=== PATIENT | female | born 1955 | race African-American/Black ===

== ENCOUNTER 2020-12-21 08:31 | Inpatient (IN) | payer OTHER, MEDICARE ==
[~2020-12-21] VITALS: Ht 172.7 cm; Wt 86.6 kg
[2020-12-21 08:57] LABS: BASOPHILS % 0.3 % (0.0-2.0); EOSINOPHILS % 1.3 % (0.0-5.0); LYMPHOCYTES % 47.6 % (20.0-50.0); MEAN CORPUSCULAR HEMOGLOBIN 24.2 pg (28.0-32.0); MEAN CORPUSCULAR VOLUME 79.3 fL (81.0-99.0); MEAN PLATELET VOLUME 8.6 fl (7.4-10.4); MONOCYTES % 4.1 % (2.0-8.0); NEUTROPHILS % 46.7 % (40.0-76.0); PLATELET 303 x1000/uL (130-400); RED BLOOD CELL COUNT 4.54 mill/uL (4.2-5.4); RED CELL DISTRIBUTION WIDTH 17.5 % (11.6-14.6)
[2020-12-21] MEDS ORDERED: DILTIAZEM HCL 125 MG in DEXT 5% WATER 100 ML IV ONE ×2 (09:00→09:15)
[2020-12-21] MEDS ORDERED: DILTIAZEM HCL 5MG/ML 5ML VIAL IV ONE (09:00)
[2020-12-21 09:14] LABS: CHLORIDE 108 mEq/L (98-107)
[2020-12-21 10:08] LABS: BG BASE EXCESS -5.5 mmol/L (-2.0-2.0); BG CARBOXYHEMOGLOBIN 0.1 % (0.5-1.5); BG DEOXYHEMOGLOBIN 0.2 % (0.0-5.0); BG FRACTION INSPIRED OXYGEN 100; BG HCO3 ACT 21.7 mmol/L (22.0-26.0); BG METHEMOGLOBIN 0.4 % (0.0-1.5); BG OXYGEN SATURATION 99.8 % (92.0-98.5); BG OXYHEMOGLOBIN 99.3 % (94.0-97.0); BG PCO2 50.1 mmHg (35.0-45.0); BG PH 7.255 (7.350-7.450); BG PO2 276.7 mmHg (75.0-100.0); BG SAMPLE SITE RIGHT BRACHIAL; BG TOTAL HEMOGLOBIN 11.6 g/dL (12.0-18.0); BG VENT MODE MASK - BIPAP
[2020-12-21] MEDS ORDERED: CEFTRIAXONE 1 G PREMIX 50 ML IV ONE (10:15)
[2020-12-21 11:07] LABS: INR 1.1; PROTHROMBIN TIME 11.4 sec (9.6-11.0)
[2020-12-21] MEDS ORDERED: AMIODARONE HCL 50MG/ML 3ML VIAL IV ONE (11:15)
[2020-12-21] MEDS ORDERED: MAGNESIUM/ALUMINUM HYDROXIDE/SIMETHICONE 30ML UDC PO PRN (12:45)
[2020-12-21] MEDS ORDERED: ACETAMINOPHEN 325MG TABLET PO PRN ×2 (12:45)
[2020-12-21] MEDS ORDERED: DOCUSATE SODIUM 100MG CAPSULE PO PRN (12:45)
[2020-12-21] MEDS ORDERED: ONDANSETRON HCL 4MG/2ML INJ IV PRN (12:45)
[2020-12-21] MEDS ORDERED: NOREPINEPHRINE 8 MG in DEXT 5% WATER 242 ML IV PRN (12:45)
[2020-12-21] MEDS ORDERED: NITROGLYCERIN 0.4MG TABLET SL SL PRN (12:45)
[2020-12-21] MEDS ORDERED: TRAMADOL 50MG TABLET PO PRN (12:45)
[2020-12-21] MEDS ORDERED: ZOLPIDEM TARTRATE 5MG TABLET PO PRN (12:45)
[2020-12-21] MEDS ORDERED: AZITHROMYCIN 500 MG in DEXT 5% WATER 250 ML IV SCH (12:45)
[2020-12-21] MEDS ORDERED: KETOROLAC 15MG/ML VIAL IV PRN (12:45)
[2020-12-21] MEDS ORDERED: GUAIFENESIN 200MG/10ML SUGAR FREE UDC PO PRN (12:45)
[2020-12-21] MEDS ORDERED: ALBUTEROL 6.7GM HFA INHALER ORI PRN (12:45)
[2020-12-21] MEDS: BLOOD SUGAR DIAGNOSTIC STRIP TEST SCH ×3 (13:00→23:30)
[2020-12-21] MEDS ORDERED: DEXTROSE 50% WATER 50ML SYRINGE IV PRN (13:00)
[2020-12-21] MEDS ORDERED: NOREPINEPHRINE 8 MG in DEXTROSE 5% WATER 250 ML IV PRN (13:15)
[2020-12-21] MEDS: INSULIN LISPRO 100 UNITS/ML SUBCUT SCH ×2 (13:20→18:53)
[2020-12-21] MEDS ORDERED: ENOXAPARIN 40MG/0.4ML SYR SUBCUT SCH (13:30)
[2020-12-21] MEDS: PIPERACILLIN/TAZ 3.375G PREMIX 50 ML IV SCH ×2 (13:57→20:00)
[2020-12-21] MEDS: METHYLPREDNISOLONE SOD SUCC 125 MG/2 ML VIAL IV SCH ×2 (13:57→22:00)
[2020-12-21] MEDS: FAMOTIDINE 20MG TABLET PO SCH (13:57)
[2020-12-21] MEDS: GUAIFENESIN/DM 600MG/30MG ER TAB 12HR PO SCH ×2 (13:57→23:20)
[2020-12-21] MEDS ORDERED: VANCOMYCIN 1 G PREMIX 200 ML IV SCH (14:00)
[2020-12-21] MEDS ORDERED: KCL 20MEQ/100ML PREMIX 100 ML IV ONE (14:00)
[2020-12-21 14:13] LABS: FOLIC ACID (FOLATE) SERUM 19.7 ng/mL (>5.38)
[2020-12-21 14:56] LABS: CREATINE KINASE MB FRACTION 13.8 ng/mL (0.5-3.6)
[2020-12-21] MEDS ORDERED: ALBUTEROL 6.7GM HFA INHALER ORI SCH (15:00)
[2020-12-21] MEDS: DILTIAZEM HCL 60MG TABLET PO SCH ×2 (18:00→23:30)
[2020-12-21] MEDS ORDERED: ENOXAPARIN 60MG/0.6ML SYR SUBCUT SCH (21:00)
[2020-12-21] MEDS: ASCORBIC ACID 500 MG TABLET PO SCH (21:00)
[2020-12-21] MEDS: IPRATROPIUM/ALBUTEROL 0.5-3(2.5)MG/3ML NEB HHN SCH (22:02)
[2020-12-22] VITALS (30 sets, daily range): BP systolic 80–140; BP diastolic 53–88
[2020-12-22 00:24] LABS: CREATINE KINASE MB FRACTION 26.1 ng/mL (0.5-3.6)
[2020-12-22] MEDS ORDERED: MIDAZOLAM HCL 5 MG/5 ML VIAL IV ONE (00:30)
[2020-12-22] MEDS ORDERED: MIDAZOLAM 100MG/100ML PMX 100 ML IV PRN (00:30)
[2020-12-22] MEDS ORDERED: FENTANYL CITRATE/PF 1,000 MCG in SODIUM CHLORIDE 0.9% 80 ML IV PRN (00:30)
[2020-12-22] MEDS ORDERED: MIDAZOLAM HCL 100 MG in SODIUM CHLORIDE 0.9% 100 ML IV PRN (00:45)
[2020-12-22] MEDS ORDERED: MIDAZOLAM HCL 2 MG/2 ML VIAL IV NR (00:45)
[2020-12-22] MEDS: PIPERACILLIN/TAZ 3.375G PREMIX 50 ML IV SCH (02:00)
[2020-12-22] MEDS: DILTIAZEM HCL 60MG TABLET PO SCH ×2 (06:00→12:00)
[2020-12-22 06:08] LABS: BASOPHILS % 0.4 % (0.0-2.0); HEMATOCRIT. 37.4 % (36.0-48.0); HEMOGLOBIN. 11.3 g/dL (12.0-16.0); LYMPHOCYTES % 20.1 % (20.0-50.0); MEAN CORPUSCULAR HEMOGLOBIN 24.1 pg (28.0-32.0); MEAN CORPUSCULAR VOLUME 79.4 fL (81.0-99.0); MEAN PLATELET VOLUME 8.4 fl (7.4-10.4); NEUTROPHILS % 75.5 % (40.0-76.0); PLATELET 268 x1000/uL (130-400); RED CELL DISTRIBUTION WIDTH 17.6 % (11.6-14.6)
[2020-12-22 06:17] LABS: CHLORIDE 104 mEq/L (98-107)
[2020-12-22 06:28] LABS: PHOSPHORUS 6.7 mg/dL (2.5-4.9)
[2020-12-22] MEDS: BLOOD SUGAR DIAGNOSTIC STRIP TEST SCH ×5 (06:30→21:12)
[2020-12-22] MEDS: METHYLPREDNISOLONE SOD SUCC 125 MG/2 ML VIAL IV SCH ×3 (06:48→21:11)
[2020-12-22] MEDS: INSULIN LISPRO 100 UNITS/ML SUBCUT SCH ×6 (07:00→21:00)
[2020-12-22] MEDS ORDERED: PIPERACILLIN/TAZOBACTAM 2.25 G in DEXTROSE 5% WATER 50 ML IV SCH (08:00)
[2020-12-22] MEDS ORDERED: ASPIRIN 325MG EC TABLET PO SCH (09:00)
[2020-12-22] MEDS ORDERED: CEFTRIAXONE 1 G PREMIX 50 ML IV SCH (09:00)
[2020-12-22 10:22] LABS: BG BASE EXCESS -8.5 mmol/L (-2.0-2.0); BG CARBOXYHEMOGLOBIN 0.3 % (0.5-1.5); BG DEOXYHEMOGLOBIN 0.7 % (0.0-5.0); BG HCO3 ACT 18.9 mmol/L (22.0-26.0); BG METHEMOGLOBIN 0.4 % (0.0-1.5); BG OXYGEN SATURATION 99.3 % (92.0-98.5); BG OXYHEMOGLOBIN 98.6 % (94.0-97.0); BG PCO2 46.4 mmHg (35.0-45.0); BG PH 7.228 (7.350-7.450); BG PO2 194.5 mmHg (75.0-100.0); BG TOTAL HEMOGLOBIN 12.3 g/dL (12.0-18.0); BG VENT MODE VENT - AC
[2020-12-22] MEDS: CHOLECALCIFEROL (D3) 1000 UNIT TABLET PO SCH (10:30)
[2020-12-22] MEDS: ZINC SULFATE 220 MG ( 50 ) CAPSULE PO SCH (10:30)
[2020-12-22] MEDS: FAMOTIDINE 20MG TABLET PO SCH (10:30)
[2020-12-22] MEDS: ASCORBIC ACID 500 MG TABLET PO SCH ×2 (10:30→21:12)
[2020-12-22] MEDS: GUAIFENESIN/DM 600MG/30MG ER TAB 12HR PO SCH ×2 (10:30→21:12)
[2020-12-22] MEDS ORDERED: VANCOMYCIN 750 MG PREMIX 150 ML IV NR (13:30)
[2020-12-22] MEDS: PIPERACILLIN/TAZOBACTAM 2.25 G in DEXTROSE 5% WATER 50 ML IV SCH ×2 (13:38→21:12)
[2020-12-22] MEDS: FUROSEMIDE 40MG/4ML VIAL IVP SCH (15:16)
[2020-12-22] MEDS: IPRATROPIUM/ALBUTEROL 0.5-3(2.5)MG/3ML NEB HHN SCH ×2 (16:15→20:29)
[2020-12-22] MEDS: MIDAZOLAM 100MG/100ML PMX 100 ML IV PRN (23:31)
[2020-12-23] VITALS (77 sets, daily range): BP systolic 74–138; BP diastolic 31–80
[2020-12-23] MEDS: IPRATROPIUM/ALBUTEROL 0.5-3(2.5)MG/3ML NEB HHN SCH ×4 (00:13→21:48)
[2020-12-23] MEDS: PIPERACILLIN/TAZOBACTAM 2.25 G in DEXTROSE 5% WATER 50 ML IV SCH ×4 (02:01→20:52)
[2020-12-23] MEDS: FENTANYL CITRATE/PF 2,500 MCG in SODIUM CHLORIDE 0.9% 200 ML IV PRN (03:51)
[2020-12-23] MEDS: METHYLPREDNISOLONE SOD SUCC 125 MG/2 ML VIAL IV SCH ×3 (05:40→20:52)
[2020-12-23 08:01] LABS: BG BASE EXCESS -1.6 mmol/L (-2.0-2.0); BG CARBOXYHEMOGLOBIN 0.3 % (0.5-1.5); BG DEOXYHEMOGLOBIN 1.7 % (0.0-5.0); BG FRACTION INSPIRED OXYGEN 55; BG HCO3 ACT 22.2 mmol/L (22.0-26.0); BG METHEMOGLOBIN 0.3 % (0.0-1.5); BG OXYGEN SATURATION 98.3 % (92.0-98.5); BG OXYHEMOGLOBIN 97.7 % (94.0-97.0); BG PCO2 34.4 mmHg (35.0-45.0); BG PEEP (cmH2O) 0 cmH2O; BG PH 7.428 (7.350-7.450); BG PO2 107.1 mmHg (75.0-100.0); BG SAMPLE SITE RIGHT RADIAL; BG TOTAL HEMOGLOBIN 11.2 g/dL (12.0-18.0); BG VENT MODE VENT - AC/VC
[2020-12-23] MEDS: ASCORBIC ACID 500 MG TABLET PO SCH ×2 (08:54→20:52)
[2020-12-23] MEDS: ENOXAPARIN 80MG/0.8ML SYR SUBCUT SCH (08:54)
[2020-12-23] MEDS: FUROSEMIDE 40MG/4ML VIAL IVP SCH (08:54)
[2020-12-23] MEDS: FAMOTIDINE 20MG TABLET PO SCH (08:55)
[2020-12-23] MEDS: ZINC SULFATE 220 MG ( 50 ) CAPSULE PO SCH (08:55)
[2020-12-23] MEDS: GUAIFENESIN/DM 600MG/30MG ER TAB 12HR PO SCH ×2 (08:58→20:52)
[2020-12-23] MEDS: CHOLECALCIFEROL (D3) 1000 UNIT TABLET PO SCH (08:58)
[2020-12-23] MEDS: MIDAZOLAM 100MG/100ML PMX 100 ML IV PRN (10:40)
[2020-12-23] MEDS: INSULIN LISPRO 100 UNITS/ML SUBCUT SCH ×3 (12:00→23:38)
[2020-12-23] MEDS: BLOOD SUGAR DIAGNOSTIC STRIP TEST SCH ×3 (12:00→23:38)
[2020-12-23] MEDS ORDERED: ALBUTEROL (0.083%) 2.5MG/3ML NEB HHN PRN ×2 (13:15)
[2020-12-23] MEDS: VASOPRESSIN 20 UNIT in SODIUM CHLORIDE 0.9% 99 ML IV PRN (17:35)
[2020-12-24] VITALS (85 sets, daily range): BP systolic 105–154; BP diastolic 60–106
[2020-12-24] MEDS: MIDAZOLAM 100MG/100ML PMX 100 ML IV PRN ×3 (00:26→22:19)
[2020-12-24] MEDS: PIPERACILLIN/TAZOBACTAM 2.25 G in DEXTROSE 5% WATER 50 ML IV SCH ×4 (01:02→21:08)
[2020-12-24] MEDS: IPRATROPIUM/ALBUTEROL 0.5-3(2.5)MG/3ML NEB HHN SCH ×4 (04:10→21:08)
[2020-12-24] MEDS: BLOOD SUGAR DIAGNOSTIC STRIP TEST SCH ×3 (05:00→18:34)
[2020-12-24] MEDS: METHYLPREDNISOLONE SOD SUCC 125 MG/2 ML VIAL IV SCH ×3 (05:00→21:08)
[2020-12-24] MEDS: INSULIN LISPRO 100 UNITS/ML SUBCUT SCH ×3 (05:02→18:00)
[2020-12-24 08:02] LABS: BG CARBOXYHEMOGLOBIN 0.3 % (0.5-1.5); BG DEOXYHEMOGLOBIN 1.7 % (0.0-5.0); BG FRACTION INSPIRED OXYGEN 55; BG HCO3 ACT 23.5 mmol/L (22.0-26.0); BG METHEMOGLOBIN 0.1 % (0.0-1.5); BG OXYGEN SATURATION 98.3 % (92.0-98.5); BG OXYHEMOGLOBIN 97.9 % (94.0-97.0); BG PCO2 34.5 mmHg (35.0-45.0); BG PEEP (cmH2O) 0 cmH2O; BG PH 7.452 (7.350-7.450); BG PO2 111.2 mmHg (75.0-100.0); BG SAMPLE SITE RIGHT RADIAL; BG VENT MODE VENT - AC/VC
[2020-12-24] MEDS: FENTANYL CITRATE/PF 2,500 MCG in SODIUM CHLORIDE 0.9% 200 ML IV PRN (08:03)
[2020-12-24] MEDS: ASCORBIC ACID 500 MG TABLET PO SCH ×2 (08:27→21:08)
[2020-12-24] MEDS: CHOLECALCIFEROL (D3) 1000 UNIT TABLET PO SCH (08:27)
[2020-12-24] MEDS: ZINC SULFATE 220 MG ( 50 ) CAPSULE PO SCH (08:27)
[2020-12-24] MEDS: ENOXAPARIN 80MG/0.8ML SYR SUBCUT SCH (08:28)
[2020-12-24] MEDS: GUAIFENESIN/DM 600MG/30MG ER TAB 12HR PO SCH ×2 (08:28→21:00)
[2020-12-24] MEDS: FAMOTIDINE 20MG TABLET PO SCH (08:28)
[2020-12-24 09:27] LABS: BASOPHILS % 0.1 % (0.0-2.0); HEMATOCRIT. 29.6 % (36.0-48.0); HEMOGLOBIN. 9.1 g/dL (12.0-16.0); LYMPHOCYTES % 9.9 % (20.0-50.0); MEAN CORPUSCULAR HEMOGLOBIN 23.9 pg (28.0-32.0); MEAN CORPUSCULAR VOLUME 77.5 fL (81.0-99.0); MEAN PLATELET VOLUME 9.2 fl (7.4-10.4); MONOCYTES % 3.7 % (2.0-8.0); NEUTROPHILS % 86.3 % (40.0-76.0); PLATELET 194 x1000/uL (130-400); RED BLOOD CELL COUNT 3.82 mill/uL (4.2-5.4); RED CELL DISTRIBUTION WIDTH 17.6 % (11.6-14.6)
[2020-12-24] MEDS ORDERED: FUROSEMIDE 20MG/2ML VIAL IVP SCH (12:00)
[2020-12-24] MEDS: VASOPRESSIN 20 UNIT in SODIUM CHLORIDE 0.9% 99 ML IV PRN (13:26)
[2020-12-24] MEDS ORDERED: VANCOMYCIN 750 MG PREMIX 150 ML IV NR (14:00)
[2020-12-25] VITALS (96 sets, daily range): BP systolic 111–156; BP diastolic 58–86
[2020-12-25] MEDS: BLOOD SUGAR DIAGNOSTIC STRIP TEST SCH ×4 (00:32→18:19)
[2020-12-25] MEDS: PIPERACILLIN/TAZOBACTAM 2.25 G in DEXTROSE 5% WATER 50 ML IV SCH ×4 (01:19→20:22)
[2020-12-25] MEDS: VASOPRESSIN 20 UNIT in SODIUM CHLORIDE 0.9% 99 ML IV PRN (01:20)
[2020-12-25] MEDS: IPRATROPIUM/ALBUTEROL 0.5-3(2.5)MG/3ML NEB HHN SCH ×4 (02:20→20:31)
[2020-12-25] MEDS: INSULIN LISPRO 100 UNITS/ML SUBCUT SCH ×4 (06:00→18:00)
[2020-12-25] MEDS: METHYLPREDNISOLONE SOD SUCC 125 MG/2 ML VIAL IV SCH ×3 (06:36→21:37)
[2020-12-25 06:37] LABS: HEMATOCRIT. 31.1 % (36.0-48.0); HEMOGLOBIN. 9.8 g/dL (12.0-16.0); MEAN CORPUSCULAR HEMOGLOBIN 24.2 pg (28.0-32.0); MEAN CORPUSCULAR VOLUME 76.4 fL (81.0-99.0); MEAN PLATELET VOLUME 9.1 fl (7.4-10.4); PLATELET 208 x1000/uL (130-400); RED BLOOD CELL COUNT 4.07 mill/uL (4.2-5.4); RED CELL DISTRIBUTION WIDTH 16.8 % (11.6-14.6)
[2020-12-25 07:47] LABS: BG CARBOXYHEMOGLOBIN 0.3 % (0.5-1.5); BG DEOXYHEMOGLOBIN 3.4 % (0.0-5.0); BG FRACTION INSPIRED OXYGEN 45; BG METHEMOGLOBIN 0.4 % (0.0-1.5); BG OXYGEN SATURATION 96.6 % (92.0-98.5); BG OXYHEMOGLOBIN 95.9 % (94.0-97.0); BG PCO2 37.2 mmHg (35.0-45.0); BG PEEP (cmH2O) 0 cmH2O; BG PH 7.445 (7.350-7.450); BG PO2 83.8 mmHg (75.0-100.0); BG SAMPLE SITE RIGHT RADIAL; BG TOTAL HEMOGLOBIN 10.7 g/dL (12.0-18.0); BG VENT MODE VENT - AC/VC
[2020-12-25] MEDS: CHOLECALCIFEROL (D3) 1000 UNIT TABLET PO SCH (08:36)
[2020-12-25] MEDS: ENOXAPARIN 80MG/0.8ML SYR SUBCUT SCH (08:36)
[2020-12-25] MEDS: ZINC SULFATE 220 MG ( 50 ) CAPSULE PO SCH (08:36)
[2020-12-25] MEDS: ASCORBIC ACID 500 MG TABLET PO SCH ×2 (08:36→20:22)
[2020-12-25] MEDS: GUAIFENESIN/DM 600MG/30MG ER TAB 12HR PO SCH ×2 (08:36→20:22)
[2020-12-25] MEDS: FAMOTIDINE 20MG TABLET PO SCH (08:36)
[2020-12-25 10:07] LABS: PLATELET ESTIMATE NORMAL
[2020-12-25] MEDS: FENTANYL CITRATE/PF 2,500 MCG in SODIUM CHLORIDE 0.9% 200 ML IV PRN (10:18)
[2020-12-25] MEDS ORDERED: POTASSIUM CHLORIDE INJ 40 MEQ in DEXT 5% WATER 250 ML IV NR (16:00)
[2020-12-26] VITALS (95 sets, daily range): BP systolic 83–203; BP diastolic 54–103
[2020-12-26] MEDS: PIPERACILLIN/TAZOBACTAM 2.25 G in DEXTROSE 5% WATER 50 ML IV SCH ×2 (01:04→09:43)
[2020-12-26] MEDS: IPRATROPIUM/ALBUTEROL 0.5-3(2.5)MG/3ML NEB HHN SCH ×4 (02:14→20:40)
[2020-12-26] MEDS ORDERED: METOPROLOL TARTRATE 5MG/5ML VIAL IV SCH (03:15)
[2020-12-26] MEDS ORDERED: METOPROLOL TARTRATE 5MG/5ML VIAL IV PRN (03:15)
[2020-12-26] MEDS: FENTANYL CITRATE/PF 2,500 MCG in SODIUM CHLORIDE 0.9% 200 ML IV PRN ×2 (03:19→20:25)
[2020-12-26] MEDS ORDERED: AMIODARONE HCL 150 MG in DEXT 5% WATER 97 ML IV SCH (04:00)
[2020-12-26] MEDS ORDERED: AMIODARONE HCL 900 MG in DEXT 5% WATER 482 ML IV PRN (04:00)
[2020-12-26] MEDS ORDERED: PHENYLEPHRINE 100 MG in DEXT 5% WATER 240 ML IV PRN (04:00)
[2020-12-26] MEDS: BLOOD SUGAR DIAGNOSTIC STRIP TEST SCH ×5 (05:51→23:08)
[2020-12-26] MEDS: METHYLPREDNISOLONE SOD SUCC 125 MG/2 ML VIAL IV SCH ×3 (05:51→21:26)
[2020-12-26] MEDS: INSULIN LISPRO 100 UNITS/ML SUBCUT SCH ×5 (05:51→23:08)
[2020-12-26] MEDS: MIDAZOLAM 100MG/100ML PMX 100 ML IV PRN (06:51)
[2020-12-26] MEDS: METOPROLOL TARTRATE 25MG TABLET PO SCH ×2 (08:30→21:27)
[2020-12-26] MEDS: ASCORBIC ACID 500 MG TABLET PO SCH ×2 (09:29→21:27)
[2020-12-26] MEDS: ENOXAPARIN 80MG/0.8ML SYR SUBCUT SCH (09:29)
[2020-12-26] MEDS: FAMOTIDINE 20MG TABLET PO SCH (09:29)
[2020-12-26] MEDS: ZINC SULFATE 220 MG ( 50 ) CAPSULE PO SCH (09:29)
[2020-12-26] MEDS: CHOLECALCIFEROL (D3) 1000 UNIT TABLET PO SCH (09:29)
[2020-12-26] MEDS: GUAIFENESIN/DM 600MG/30MG ER TAB 12HR PO SCH ×2 (09:29→20:25)
[2020-12-26] MEDS ORDERED: POTASSIUM CHLORIDE 20MEQ/PACKET PO NR (10:30)
[2020-12-26] MEDS ORDERED: POTASSIUM CHLORIDE INJ 40 MEQ in DEXT 5% WATER 250 ML IV NR ×2 (10:30→11:30)
[2020-12-26] MEDS ORDERED: VANCOMYCIN 1 G PREMIX 200 ML IV SCH (12:00)
[2020-12-27] VITALS (82 sets, daily range): BP systolic 106–184; BP diastolic 64–103
[2020-12-27] MEDS: IPRATROPIUM/ALBUTEROL 0.5-3(2.5)MG/3ML NEB HHN SCH ×4 (00:37→20:30)
[2020-12-27] MEDS: METHYLPREDNISOLONE SOD SUCC 125 MG/2 ML VIAL IV SCH ×3 (05:37→22:22)
[2020-12-27] MEDS: BLOOD SUGAR DIAGNOSTIC STRIP TEST SCH ×3 (05:37→23:13)
[2020-12-27] MEDS: INSULIN LISPRO 100 UNITS/ML SUBCUT SCH ×3 (05:38→23:13)
[2020-12-27 06:33] LABS: HEMATOCRIT. 31.3 % (36.0-48.0); HEMOGLOBIN. 9.9 g/dL (12.0-16.0); MEAN CORPUSCULAR HEMOGLOBIN 24.2 pg (28.0-32.0); MEAN CORPUSCULAR VOLUME 76.9 fL (81.0-99.0); PLATELET 235 x1000/uL (130-400); RED BLOOD CELL COUNT 4.07 mill/uL (4.2-5.4); RED CELL DISTRIBUTION WIDTH 16.9 % (11.6-14.6)
[2020-12-27] MEDS: MIDAZOLAM 100MG/100ML PMX 100 ML IV PRN (08:04)
[2020-12-27] MEDS: FENTANYL CITRATE/PF 2,500 MCG in SODIUM CHLORIDE 0.9% 200 ML IV PRN ×2 (08:18→23:58)
[2020-12-27] MEDS: METOPROLOL TARTRATE 25MG TABLET PO SCH ×2 (08:41→20:14)
[2020-12-27] MEDS: CHOLECALCIFEROL (D3) 1000 UNIT TABLET PO SCH (08:41)
[2020-12-27] MEDS: ASCORBIC ACID 500 MG TABLET PO SCH ×2 (08:41→20:14)
[2020-12-27] MEDS: FAMOTIDINE 20MG TABLET PO SCH (08:41)
[2020-12-27] MEDS: ZINC SULFATE 220 MG ( 50 ) CAPSULE PO SCH (08:41)
[2020-12-27] MEDS: GUAIFENESIN/DM 600MG/30MG ER TAB 12HR PO SCH ×2 (08:41→20:14)
[2020-12-27] MEDS: ENOXAPARIN 80MG/0.8ML SYR SUBCUT SCH (08:43)
[2020-12-27 09:40] LABS: BG BASE EXCESS 1.7 mmol/L (-2.0-2.0); BG CARBOXYHEMOGLOBIN 0.3 % (0.5-1.5); BG DEOXYHEMOGLOBIN 11.3 % (0.0-5.0); BG FRACTION INSPIRED OXYGEN 45; BG HCO3 ACT 26.8 mmol/L (22.0-26.0); BG METHEMOGLOBIN 0.3 % (0.0-1.5); BG OXYGEN SATURATION 88.6 % (92.0-98.5); BG OXYHEMOGLOBIN 88.1 % (94.0-97.0); BG PCO2 44.4 mmHg (35.0-45.0); BG PH 7.399 (7.350-7.450); BG PO2 50.4 mmHg (75.0-100.0); BG SAMPLE SITE RIGHT RADIAL; BG TOTAL HEMOGLOBIN 11.2 g/dL (12.0-18.0); BG VENT MODE VENT - AC
[2020-12-27 10:57] LABS: PLATELET ESTIMATE NORMAL
[2020-12-28] VITALS (69 sets, daily range): BP systolic 110–204; BP diastolic 62–115
[2020-12-28] MEDS: IPRATROPIUM/ALBUTEROL 0.5-3(2.5)MG/3ML NEB HHN SCH ×4 (02:46→20:33)
[2020-12-28] MEDS: BLOOD SUGAR DIAGNOSTIC STRIP TEST SCH ×4 (05:34→23:26)
[2020-12-28] MEDS: INSULIN LISPRO 100 UNITS/ML SUBCUT SCH ×4 (05:34→23:26)
[2020-12-28] MEDS: METHYLPREDNISOLONE SOD SUCC 125 MG/2 ML VIAL IV SCH ×3 (05:42→21:20)
[2020-12-28 06:19] LABS: HEMOGLOBIN. 10.6 g/dL (12.0-16.0); MEAN CORPUSCULAR HEMOGLOBIN 24.2 pg (28.0-32.0); MEAN CORPUSCULAR VOLUME 77.7 fL (81.0-99.0); MEAN PLATELET VOLUME 9.2 fl (7.4-10.4); PLATELET 231 x1000/uL (130-400); RED BLOOD CELL COUNT 4.37 mill/uL (4.2-5.4); RED CELL DISTRIBUTION WIDTH 17.3 % (11.6-14.6)
[2020-12-28] MEDS: METOPROLOL TARTRATE 25MG TABLET PO SCH (07:47)
[2020-12-28] MEDS: ENOXAPARIN 80MG/0.8ML SYR SUBCUT SCH (08:04)
[2020-12-28] MEDS: METOPROLOL TARTRATE 5MG/5ML VIAL IV PRN (08:05)
[2020-12-28] MEDS: FAMOTIDINE 20MG TABLET PO SCH (08:06)
[2020-12-28] MEDS: GUAIFENESIN/DM 600MG/30MG ER TAB 12HR PO SCH ×2 (08:06→21:20)
[2020-12-28] MEDS: CHOLECALCIFEROL (D3) 1000 UNIT TABLET PO SCH (08:06)
[2020-12-28] MEDS: ZINC SULFATE 220 MG ( 50 ) CAPSULE PO SCH (08:06)
[2020-12-28] MEDS: ASCORBIC ACID 500 MG TABLET PO SCH ×2 (08:06→21:20)
[2020-12-28] MEDS: MIDAZOLAM 100MG/100ML PMX 100 ML IV PRN (09:13)
[2020-12-28 10:27] LABS: PLATELET ESTIMATE NORMAL
[2020-12-28 10:40] LABS: BG BASE EXCESS 1.7 mmol/L (-2.0-2.0); BG CARBOXYHEMOGLOBIN 0.3 % (0.5-1.5); BG DEOXYHEMOGLOBIN 1.3 % (0.0-5.0); BG FRACTION INSPIRED OXYGEN 55; BG METHEMOGLOBIN 0.3 % (0.0-1.5); BG OXYGEN SATURATION 98.7 % (92.0-98.5); BG OXYHEMOGLOBIN 98.1 % (94.0-97.0); BG PCO2 45.3 mmHg (35.0-45.0); BG PH 7.393 (7.350-7.450); BG PO2 145.7 mmHg (75.0-100.0); BG SAMPLE SITE RIGHT RADIAL; BG VENT MODE VENT - AC
[2020-12-28] MEDS: QUETIAPINE FUMARATE 25MG TABLET PO SCH ×2 (10:45→21:20)
[2020-12-28] MEDS: FENTANYL CITRATE/PF 2,500 MCG in SODIUM CHLORIDE 0.9% 200 ML IV PRN (16:26)
[2020-12-28] MEDS: METOPROLOL TARTRATE 50MG TABLET PO SCH (21:21)
[2020-12-29] VITALS (70 sets, daily range): BP systolic 102–184; BP diastolic 58–94
[2020-12-29] MEDS: IPRATROPIUM/ALBUTEROL 0.5-3(2.5)MG/3ML NEB HHN SCH ×3 (01:27→20:45)
[2020-12-29] MEDS: MIDAZOLAM 100MG/100ML PMX 100 ML IV PRN (03:27)
[2020-12-29] MEDS: BLOOD SUGAR DIAGNOSTIC STRIP TEST SCH ×4 (05:23→23:12)
[2020-12-29] MEDS: INSULIN LISPRO 100 UNITS/ML SUBCUT SCH ×4 (05:23→23:13)
[2020-12-29] MEDS: METHYLPREDNISOLONE SOD SUCC 125 MG/2 ML VIAL IV SCH ×2 (05:29→20:39)
[2020-12-29] MEDS: FENTANYL CITRATE/PF 2,500 MCG in SODIUM CHLORIDE 0.9% 200 ML IV PRN ×2 (05:30→23:08)
[2020-12-29 06:48] LABS: HEMATOCRIT. 33.1 % (36.0-48.0); HEMOGLOBIN. 10.2 g/dL (12.0-16.0); MEAN CORPUSCULAR HEMOGLOBIN 24.5 pg (28.0-32.0); MEAN CORPUSCULAR VOLUME 79.7 fL (81.0-99.0); MEAN PLATELET VOLUME 9.2 fl (7.4-10.4); PLATELET 213 x1000/uL (130-400); RED BLOOD CELL COUNT 4.15 mill/uL (4.2-5.4); RED CELL DISTRIBUTION WIDTH 17.7 % (11.6-14.6)
[2020-12-29 08:14] LABS: BG BASE EXCESS -1.1 mmol/L (-2.0-2.0); BG CARBOXYHEMOGLOBIN 0.3 % (0.5-1.5); BG DEOXYHEMOGLOBIN 4.9 % (0.0-5.0); BG FRACTION INSPIRED OXYGEN 40; BG METHEMOGLOBIN 0.4 % (0.0-1.5); BG OXYGEN SATURATION 95.1 % (92.0-98.5); BG OXYHEMOGLOBIN 94.4 % (94.0-97.0); BG PCO2 41.5 mmHg (35.0-45.0); BG PO2 76.2 mmHg (75.0-100.0); BG SAMPLE SITE RIGHT RADIAL; BG TOTAL HEMOGLOBIN 10.2 g/dL (12.0-18.0); BG VENT MODE VENT - AC
[2020-12-29] MEDS: FAMOTIDINE 20MG TABLET PO SCH (09:00)
[2020-12-29] MEDS: ZINC SULFATE 220 MG ( 50 ) CAPSULE PO SCH (09:00)
[2020-12-29] MEDS: ENOXAPARIN 80MG/0.8ML SYR SUBCUT SCH (09:00)
[2020-12-29] MEDS: CHOLECALCIFEROL (D3) 1000 UNIT TABLET PO SCH (09:00)
[2020-12-29] MEDS: ASCORBIC ACID 500 MG TABLET PO SCH ×2 (09:00→20:40)
[2020-12-29] MEDS: QUETIAPINE FUMARATE 25MG TABLET PO SCH ×2 (09:00→20:40)
[2020-12-29] MEDS: GUAIFENESIN/DM 600MG/30MG ER TAB 12HR PO SCH ×2 (09:00→20:40)
[2020-12-29] MEDS: METOPROLOL TARTRATE 50MG TABLET PO SCH ×2 (09:00→20:40)
[2020-12-29 12:17] LABS: PLATELET ESTIMATE NORMAL
[2020-12-30] VITALS (111 sets, daily range): BP systolic 93–218; BP diastolic 51–112
[2020-12-30 05:43] LABS: HEMATOCRIT. 31.4 % (36.0-48.0); HEMOGLOBIN. 9.8 g/dL (12.0-16.0); MEAN CORPUSCULAR HEMOGLOBIN 24.4 pg (28.0-32.0); MEAN PLATELET VOLUME 9.2 fl (7.4-10.4); PLATELET 258 x1000/uL (130-400); RED BLOOD CELL COUNT 4.02 mill/uL (4.2-5.4); RED CELL DISTRIBUTION WIDTH 17.4 % (11.6-14.6)
[2020-12-30] MEDS: INSULIN LISPRO 100 UNITS/ML SUBCUT SCH ×3 (06:00→18:00)
[2020-12-30] MEDS: BLOOD SUGAR DIAGNOSTIC STRIP TEST SCH ×3 (06:45→18:25)
[2020-12-30] MEDS: IPRATROPIUM/ALBUTEROL 0.5-3(2.5)MG/3ML NEB HHN SCH ×2 (08:23→20:40)
[2020-12-30 08:31] LABS: BG BASE EXCESS 0.7 mmol/L (-2.0-2.0); BG CARBOXYHEMOGLOBIN 0.3 % (0.5-1.5); BG DEOXYHEMOGLOBIN 2.5 % (0.0-5.0); BG FRACTION INSPIRED OXYGEN 40; BG HCO3 ACT 25.3 mmol/L (22.0-26.0); BG METHEMOGLOBIN 0.3 % (0.0-1.5); BG OXYGEN SATURATION 97.5 % (92.0-98.5); BG OXYHEMOGLOBIN 96.9 % (94.0-97.0); BG PCO2 40.8 mmHg (35.0-45.0); BG PH 7.411 (7.350-7.450); BG PO2 100.4 mmHg (75.0-100.0); BG SAMPLE SITE RIGHT RADIAL; BG TOTAL HEMOGLOBIN 10.3 g/dL (12.0-18.0); BG VENT MODE VENT - AC
[2020-12-30] MEDS: GUAIFENESIN/DM 600MG/30MG ER TAB 12HR PO SCH ×2 (09:35→20:44)
[2020-12-30] MEDS: METHYLPREDNISOLONE SOD SUCC 125 MG/2 ML VIAL IV SCH ×2 (09:35→20:46)
[2020-12-30] MEDS: METOPROLOL TARTRATE 50MG TABLET PO SCH ×2 (09:35→20:45)
[2020-12-30] MEDS: FAMOTIDINE 20MG TABLET PO SCH (09:36)
[2020-12-30] MEDS: QUETIAPINE FUMARATE 25MG TABLET PO SCH (09:36)
[2020-12-30] MEDS: ASCORBIC ACID 500 MG TABLET PO SCH ×2 (09:36→20:45)
[2020-12-30] MEDS: CHOLECALCIFEROL (D3) 1000 UNIT TABLET PO SCH (09:36)
[2020-12-30] MEDS: ENOXAPARIN 80MG/0.8ML SYR SUBCUT SCH (09:36)
[2020-12-30] MEDS: ZINC SULFATE 220 MG ( 50 ) CAPSULE PO SCH (09:36)
[2020-12-30] MEDS: HYDRALAZINE HCL 25MG TABLET PO SCH ×2 (11:05→20:45)
[2020-12-30] MEDS: LORAZEPAM 2MG/ML CPJ IV PRN ×2 (13:13→23:02)
[2020-12-30] MEDS: FENTANYL CITRATE/PF 2,500 MCG in SODIUM CHLORIDE 0.9% 200 ML IV PRN (13:20)
[2020-12-30 14:00] LABS: PLATELET ESTIMATE NORMAL
[2020-12-30] MEDS: QUETIAPINE FUMARATE 50MG TABLET PO SCH (20:45)
[2020-12-31] VITALS (72 sets, daily range): BP systolic 94–209; BP diastolic 46–117
[2020-12-31] MEDS: BLOOD SUGAR DIAGNOSTIC STRIP TEST SCH ×4 (00:30→18:22)
[2020-12-31] MEDS: FENTANYL CITRATE/PF 2,500 MCG in SODIUM CHLORIDE 0.9% 200 ML IV PRN ×2 (02:18→14:26)
[2020-12-31] MEDS: HYDRALAZINE HCL 25MG TABLET PO SCH ×3 (05:35→21:00)
[2020-12-31] MEDS: INSULIN LISPRO 100 UNITS/ML SUBCUT SCH ×4 (05:36→18:29)
[2020-12-31] MEDS: LORAZEPAM 2MG/ML CPJ IV PRN ×2 (06:34→22:17)
[2020-12-31] MEDS ORDERED: METHYLPREDNISOLONE SOD SUCC 125 MG/2 ML VIAL IV SCH (09:00)
[2020-12-31] MEDS: GUAIFENESIN/DM 600MG/30MG ER TAB 12HR PO SCH ×2 (09:06→20:02)
[2020-12-31] MEDS: ENOXAPARIN 80MG/0.8ML SYR SUBCUT SCH (09:06)
[2020-12-31] MEDS: QUETIAPINE FUMARATE 50MG TABLET PO SCH ×2 (09:07→20:02)
[2020-12-31] MEDS: ZINC SULFATE 220 MG ( 50 ) CAPSULE PO SCH (09:07)
[2020-12-31] MEDS: ASCORBIC ACID 500 MG TABLET PO SCH ×2 (09:07→20:02)
[2020-12-31] MEDS: CHOLECALCIFEROL (D3) 1000 UNIT TABLET PO SCH (09:07)
[2020-12-31] MEDS: METOPROLOL TARTRATE 50MG TABLET PO SCH ×2 (09:08→20:02)
[2020-12-31] MEDS: FAMOTIDINE 20MG TABLET PO SCH (09:08)
[2020-12-31] MEDS: CLONIDINE 0.1MG TABLET PO PRN ×2 (12:08→22:03)
[2020-12-31] MEDS: IPRATROPIUM/ALBUTEROL 0.5-3(2.5)MG/3ML NEB HHN SCH (19:55)
[2021-01-01] VITALS (97 sets, daily range): BP systolic 99–196; BP diastolic 48–145
[2021-01-01] MEDS: BLOOD SUGAR DIAGNOSTIC STRIP TEST SCH ×4 (00:01→18:00)
[2021-01-01] MEDS: FENTANYL CITRATE/PF 2,500 MCG in SODIUM CHLORIDE 0.9% 200 ML IV PRN ×2 (03:18→16:26)
[2021-01-01] MEDS: LORAZEPAM 2MG/ML CPJ IV PRN ×3 (04:30→16:26)
[2021-01-01] MEDS: INSULIN LISPRO 100 UNITS/ML SUBCUT SCH ×4 (06:00→18:00)
[2021-01-01] MEDS: HYDRALAZINE HCL 25MG TABLET PO SCH ×3 (06:04→22:00)
[2021-01-01 06:23] LABS: MEAN CORPUSCULAR HEMOGLOBIN 24.2 pg (28.0-32.0); MEAN CORPUSCULAR VOLUME 77.9 fL (81.0-99.0); MEAN PLATELET VOLUME 9.6 fl (7.4-10.4); PLATELET 227 x1000/uL (130-400); RED BLOOD CELL COUNT 3.72 mill/uL (4.2-5.4); RED CELL DISTRIBUTION WIDTH 17.2 % (11.6-14.6)
[2021-01-01] MEDS: ENOXAPARIN 80MG/0.8ML SYR SUBCUT SCH (08:04)
[2021-01-01] MEDS: ZINC SULFATE 220 MG ( 50 ) CAPSULE PO SCH (08:04)
[2021-01-01] MEDS: FAMOTIDINE 20MG TABLET PO SCH (08:04)
[2021-01-01] MEDS: METOPROLOL TARTRATE 50MG TABLET PO SCH (08:04)
[2021-01-01] MEDS: METHYLPREDNISOLONE SOD SUCC 40 MG/ML VIAL IV SCH (08:04)
[2021-01-01] MEDS: CHOLECALCIFEROL (D3) 1000 UNIT TABLET PO SCH (08:04)
[2021-01-01] MEDS: ASCORBIC ACID 500 MG TABLET PO SCH ×2 (08:04→20:35)
[2021-01-01] MEDS: GUAIFENESIN/DM 600MG/30MG ER TAB 12HR PO SCH ×2 (08:04→20:35)
[2021-01-01] MEDS: QUETIAPINE FUMARATE 50MG TABLET PO SCH ×2 (08:04→20:35)
[2021-01-01] MEDS: METOPROLOL TARTRATE 25MG TABLET PO SCH ×2 (09:00→20:35)
[2021-01-01] MEDS: IPRATROPIUM/ALBUTEROL 0.5-3(2.5)MG/3ML NEB HHN SCH ×2 (09:16→21:29)
[2021-01-01] MEDS: CLONIDINE 0.1MG TABLET PO PRN (10:23)
[2021-01-01 10:30] LABS: BG BASE EXCESS 1.5 mmol/L (-2.0-2.0); BG CARBOXYHEMOGLOBIN 0.3 % (0.5-1.5); BG DEOXYHEMOGLOBIN 7.3 % (0.0-5.0); BG FRACTION INSPIRED OXYGEN 40; BG METHEMOGLOBIN 0.4 % (0.0-1.5); BG OXYGEN SATURATION 92.6 % (92.0-98.5); BG PCO2 35.7 mmHg (35.0-45.0); BG PH 7.464 (7.350-7.450); BG PO2 62.7 mmHg (75.0-100.0); BG SAMPLE SITE RIGHT RADIAL; BG TOTAL HEMOGLOBIN 10.5 g/dL (12.0-18.0); BG TOTAL RESPIRATORY RATE 22 b/min; BG VENT MODE VENT - AC
[2021-01-01 10:42] LABS: PLATELET ESTIMATE NORMAL
[2021-01-01] MEDS: DEXTROSE 5% WATER 1,000 ML IV SCH (16:25)
[2021-01-02] VITALS (104 sets, daily range): BP systolic 84–207; BP diastolic 49–143
[2021-01-02] MEDS: LORAZEPAM 2MG/ML CPJ IV PRN ×2 (01:18→20:55)
[2021-01-02] MEDS: BLOOD SUGAR DIAGNOSTIC STRIP TEST SCH ×4 (05:12→17:49)
[2021-01-02] MEDS: HYDRALAZINE HCL 25MG TABLET PO SCH ×4 (05:13→22:00)
[2021-01-02] MEDS: INSULIN LISPRO 100 UNITS/ML SUBCUT SCH ×4 (05:13→17:49)
[2021-01-02 05:36] LABS: HEMATOCRIT. 31.6 % (36.0-48.0); HEMOGLOBIN. 9.7 g/dL (12.0-16.0); MEAN CORPUSCULAR HEMOGLOBIN 24.1 pg (28.0-32.0); MEAN CORPUSCULAR VOLUME 78.5 fL (81.0-99.0); MEAN PLATELET VOLUME 9.3 fl (7.4-10.4); PLATELET 255 x1000/uL (130-400); RED BLOOD CELL COUNT 4.03 mill/uL (4.2-5.4); RED CELL DISTRIBUTION WIDTH 17.6 % (11.6-14.6)
[2021-01-02] MEDS: METOPROLOL TARTRATE 5MG/5ML VIAL IV PRN ×2 (05:40→17:50)
[2021-01-02] MEDS ORDERED: METOPROLOL TARTRATE 5MG/5ML VIAL IV NR (06:00)
[2021-01-02 08:04] LABS: BG BASE EXCESS 0.4 mmol/L (-2.0-2.0); BG CARBOXYHEMOGLOBIN 0.3 % (0.5-1.5); BG DEOXYHEMOGLOBIN 8.2 % (0.0-5.0); BG HCO3 ACT 24.4 mmol/L (22.0-26.0); BG OXYGEN SATURATION 91.8 % (92.0-98.5); BG OXYHEMOGLOBIN 91.5 % (94.0-97.0); BG PH 7.437 (7.350-7.450); BG PO2 56.9 mmHg (75.0-100.0); BG SAMPLE SITE RIGHT RADIAL; BG TOTAL HEMOGLOBIN 10.8 g/dL (12.0-18.0); BG VENT MODE VENT - AC
[2021-01-02] MEDS: FENTANYL CITRATE/PF 2,500 MCG in SODIUM CHLORIDE 0.9% 200 ML IV PRN ×2 (08:11→17:54)
[2021-01-02] MEDS: IPRATROPIUM/ALBUTEROL 0.5-3(2.5)MG/3ML NEB HHN SCH ×2 (08:25→21:20)
[2021-01-02] MEDS: GUAIFENESIN-DM 200MG-20MG/10ML UDC NG SCH ×2 (09:09→17:49)
[2021-01-02] MEDS: METHYLPREDNISOLONE SOD SUCC 40 MG/ML VIAL IV SCH (09:09)
[2021-01-02] MEDS: ENOXAPARIN 80MG/0.8ML SYR SUBCUT SCH (09:10)
[2021-01-02] MEDS: ZINC SULFATE 220 MG ( 50 ) CAPSULE PO SCH (09:11)
[2021-01-02] MEDS: FAMOTIDINE 20MG TABLET PO SCH (09:11)
[2021-01-02] MEDS: ASCORBIC ACID 500 MG TABLET PO SCH ×2 (09:11→21:00)
[2021-01-02] MEDS: QUETIAPINE FUMARATE 50MG TABLET PO SCH ×2 (09:11→21:00)
[2021-01-02] MEDS: METOPROLOL TARTRATE 25MG TABLET PO SCH ×2 (09:11→21:00)
[2021-01-02] MEDS: CHOLECALCIFEROL (D3) 1000 UNIT TABLET PO SCH (09:12)
[2021-01-02] MEDS: DEXTROSE 5% WATER 1,000 ML IV SCH (12:00)
[2021-01-02] MEDS: CLONIDINE 0.1MG TABLET PO PRN (15:52)
[2021-01-02 19:18] LABS: PLATELET ESTIMATE NORMAL
[2021-01-03] VITALS (89 sets, daily range): BP systolic 77–203; BP diastolic 40–108
[2021-01-03] MEDS: BLOOD SUGAR DIAGNOSTIC STRIP TEST SCH ×3 (00:15→12:05)
[2021-01-03] MEDS: METOPROLOL TARTRATE 25MG TABLET PO SCH ×2 (01:21→08:24)
[2021-01-03] MEDS: FENTANYL CITRATE/PF 2,500 MCG in SODIUM CHLORIDE 0.9% 200 ML IV PRN ×2 (02:40→10:47)
[2021-01-03 05:57] LABS: HEMATOCRIT. 28.4 % (36.0-48.0); HEMOGLOBIN. 8.7 g/dL (12.0-16.0); MEAN CORPUSCULAR HEMOGLOBIN 24.3 pg (28.0-32.0); MEAN CORPUSCULAR VOLUME 78.9 fL (81.0-99.0); MEAN PLATELET VOLUME 9.6 fl (7.4-10.4); PLATELET 186 x1000/uL (130-400); RED BLOOD CELL COUNT 3.59 mill/uL (4.2-5.4); RED CELL DISTRIBUTION WIDTH 18.2 % (11.6-14.6)
[2021-01-03] MEDS: INSULIN LISPRO 100 UNITS/ML SUBCUT SCH ×4 (06:00→17:27)
[2021-01-03] MEDS: HYDRALAZINE HCL 25MG TABLET PO SCH ×2 (07:24→14:43)
[2021-01-03] MEDS: DEXTROSE 5% WATER 1,000 ML IV SCH (08:23)
[2021-01-03] MEDS: ASCORBIC ACID 500 MG TABLET PO SCH (08:23)
[2021-01-03] MEDS: QUETIAPINE FUMARATE 50MG TABLET PO SCH (08:23)
[2021-01-03] MEDS: GUAIFENESIN-DM 200MG-20MG/10ML UDC NG SCH (08:23)
[2021-01-03] MEDS: CHOLECALCIFEROL (D3) 1000 UNIT TABLET PO SCH (08:23)
[2021-01-03] MEDS: METHYLPREDNISOLONE SOD SUCC 40 MG/ML VIAL IV SCH (08:23)
[2021-01-03] MEDS: FAMOTIDINE 20MG TABLET PO SCH (08:24)
[2021-01-03] MEDS: ENOXAPARIN 80MG/0.8ML SYR SUBCUT SCH (08:24)
[2021-01-03] MEDS: ZINC SULFATE 220 MG ( 50 ) CAPSULE PO SCH (08:26)
[2021-01-03] MEDS: IPRATROPIUM/ALBUTEROL 0.5-3(2.5)MG/3ML NEB HHN SCH (08:28)
[2021-01-03] MEDS ORDERED: METO25TA6 PO (10:07)
[2021-01-03] MEDS ORDERED: OSIM80TA PO (10:07)
[2021-01-03] MEDS ORDERED: APIX5TAB MT (10:07)
[2021-01-03] MEDS ORDERED: AMLO5TAB88 MT (10:07)
[2021-01-03 11:46] LABS: PLATELET ESTIMATE NORMAL
[2021-01-03] MEDS: LORAZEPAM 2MG/ML CPJ IV PRN (17:30)
[2021-01-03] MEDS ORDERED: MORPHINE SULFATE 250 MG in DEXT 5% WATER 240 ML IV PRN (19:45)
[2021-01-04] VITALS: BP 57/29
[2021-01-04 00:15] VITALS: BP 45/26
== END 2021-01-04 06:58 | disposition expired | DRG 870 ==
LOC: ER 08:31 → MICUSO 12:28 → CVICU 12-22 07:37
PROVIDERS: ADMIT Internal Medicine; ATTEND Internal Medicine
PROC: 5A09357 Assistance with Respiratory Ventilation, Less than 24 Consecutive Hours, Continuous Positive Airway Pressure (ICD-10-PCS; 2020-12-21)
PROC: 5A1955Z Respiratory Ventilation, Greater than 96 Consecutive Hours (ICD-10-PCS; principal; 2020-12-22)
PROC: 0BH17EZ Insertion of Endotracheal Airway into Trachea, Via Natural or Artificial Opening (ICD-10-PCS; 2020-12-22)
PROC: 02HV33Z Insertion of Infusion Device into Superior Vena Cava, Percutaneous Approach (ICD-10-PCS; 2020-12-23)
PROC: B548ZZA Ultrasonography of Superior Vena Cava, Guidance (ICD-10-PCS; 2020-12-23)
DX: A41.9 Sepsis, unspecified organism (principal); J18.9 Pneumonia, unspecified organism; J96.01 Acute respiratory failure with hypoxia; K72.00 Acute and subacute hepatic failure without coma; J96.02 Acute respiratory failure with hypercapnia; I26.99 Other pulmonary embolism without acute cor pulmonale; I50.23 Acute on chronic systolic (congestive) heart failure; N17.0 Acute kidney failure with tubular necrosis; I21.4 Non-ST elevation (NSTEMI) myocardial infarction; E44.0 Moderate protein-calorie malnutrition; I47.1 Supraventricular tachycardia; J44.1 Chronic obstructive pulmonary disease with (acute) exacerbation; M62.82 Rhabdomyolysis; E87.2 Acidosis; D68.9 Coagulation defect, unspecified; J44.0 Chronic obstructive pulmonary disease with (acute) lower respiratory infection; E87.0 Hyperosmolality and hypernatremia; C34.90 Malignant neoplasm of unspecified part of unspecified bronchus or lung; Z51.5 Encounter for palliative care; I27.20 Pulmonary hypertension, unspecified; I48.91 Unspecified atrial fibrillation; E87.6 Hypokalemia; R65.20 Severe sepsis without septic shock; Z20.822 Contact with and (suspected) exposure to COVID-19; I11.0 Hypertensive heart disease with heart failure; I08.1 Rheumatic disorders of both mitral and tricuspid valves; Z85.118 Personal history of other malignant neoplasm of bronchus and lung; I25.2 Old myocardial infarction; Z92.21 Personal history of antineoplastic chemotherapy; Z68.29 Body mass index [BMI] 29.0-29.9, adult; Z79.899 Other long term (current) drug therapy
CPT/HCPCS: 36415; 36600; 71045; 71275; 76937; 78580; 80048; 80053; 80061; 80202; 82375; 82550; 82553; 82607; 82746; 82805; 82962; 83036; 83540; 83550; 83605; 83615; 83735; 83880; 84100; 84145; 84484; 85025; 85379; 86850; 86900; 87070; 93005; 93306; 93970; 94002; 94003; 94640; 94660; 96365; 99291; A6261; C1725; C9803; J0282; J0696; J1650; J1815; J1940; J2060; J2250; J2274; J2370; J2543; J2920; J2930; J3010; J3370; J3480; J3490; J7050; J7060; J7070; U0003